=== PATIENT | female | born 1970 | race Hispanic/Latino ===

== ENCOUNTER 2017-12-10 21:14 | Emergency (ER) | payer BC ==
[2017-12-10] MEDS ORDERED: Amoxicillin/Potassium Clav 875 MG TAB ONE (21:52)
== END 2017-12-10 22:00 | disposition home or self-care (01) ==
LOC: BURERS 21:14
DX: L03.031 Cellulitis of right toe (principal); E11.9 Type 2 diabetes mellitus without complications; F17.210 Nicotine dependence, cigarettes, uncomplicated; Z79.84 Long term (current) use of oral hypoglycemic drugs
CPT/HCPCS: 10060

== ENCOUNTER 2018-03-03 21:45 | Emergency (ER) | payer BC | END 2018-03-03 22:20 | disposition home or self-care (01) | LOC: BURERS 21:45 | DX: J20.9 Acute bronchitis, unspecified (principal); E11.9 Type 2 diabetes mellitus without complications; F17.210 Nicotine dependence, cigarettes, uncomplicated; Z79.84 Long term (current) use of oral hypoglycemic drugs; Z79.899 Other long term (current) drug therapy | CPT/HCPCS: J7620 ==

== ENCOUNTER 2021-03-24 11:54 | Emergency (ER) | payer BC ==
[2021-03-24] MEDS ORDERED: predniSONE 20 MG TAB ONE (15:00)
[2021-03-24 15:07] LABS: #Basophils 0.1 thou/uL (0.0-0.2); #Monocytes 0.5 thou/uL (0.11-0.59); #Neutrophils 3.4 thou/uL (1.40-6.50); %Basophils 1.1 % (0.0-1.0); %Eosinophils 0.6 % (0.0-10.0); %Lymphocytes 32.8 % (21.0-51.0); %Monocytes 8.3 % (0.0-10.0); %Neutrophils 57.3 % (42.0-75.0); Hemoglobin 13.4 g/dL (12.0-16.0); Mean Corpuscular HGB CONC 33.8 g/dL (32.0-36.0); Mean Corpuscular Hemoglobin 31.2 pg (27.0-31.0); Mean Corpuscular Volume 92.1 fL (78.0-98.0); Mean Platelet Volume 9.9 fL (7.4-10.4); Platelet Count 203 thou/uL (130-400); Red Blood Cell (RBC) Count 4.29 mill/uL (4.20-5.40)
[2021-03-24 15:24] LABS: ALT (SGPT) 32 U/L (8-55); AST (SGOT) 35 U/L (5-34); Albumin 4.1 g/dL (3.5-5.0); Alkaline Phosphatase 56 U/L (40-110); Anion Gap 15 mmol/L (10-20); BUN (Urea Nitrogen) 4 mg/dL (9.8-20.1); Bilirubin, Total 0.5 mg/dL (0.2-1.2); Calc. Creatinine Clearance 0 mL/min (70-130); Calcium 10.1 mg/dL (7.8-10.44); Carbon Dioxide 24 mmol/L (22-29); Chloride 104 mmol/L (98-107); Glucose 158 mg/dL (70-105); Potassium 3.5 mmol/L (3.5-5.1); Protein, Total 7.1 g/dL (6.0-8.3); Sodium 139 mmol/L (136-145)
[2021-03-25 16:29] LABS: SARS-CoV-2 PCR by NAA Not Detected (NotDetected)
== END 2021-03-24 16:20 | disposition home or self-care (01) ==
LOC: BURERS 11:54
DX: B34.9 Viral infection, unspecified (principal); Z20.822 Contact with and (suspected) exposure to COVID-19; E11.9 Type 2 diabetes mellitus without complications; F17.210 Nicotine dependence, cigarettes, uncomplicated; Z79.84 Long term (current) use of oral hypoglycemic drugs
CPT/HCPCS: 36415; 71046; 80053; 83880; 84484; 85025; 87804; 93005; J7512; J7620; U0003; U0005

== ENCOUNTER 2022-12-21 20:00 | Emergency (ER) | payer BC ==
[2022-12-21] MEDS ORDERED: Ketorolac Tromethamine 30 MG/ML VIAL ONE (20:33)
[2022-12-21] MEDS ORDERED: HYDROcodone/Acetaminophen 5/325 mg Tablet ONE (20:38)
[2022-12-21] MEDS ORDERED: Ondansetron ODT 4 MG TAB ONE (20:39)
== END 2022-12-21 21:25 | disposition home or self-care (01) ==
LOC: BURERS 20:00
DX: M54.42 Lumbago with sciatica, left side (principal); E11.9 Type 2 diabetes mellitus without complications; F17.210 Nicotine dependence, cigarettes, uncomplicated; Z79.84 Long term (current) use of oral hypoglycemic drugs; Z79.899 Other long term (current) drug therapy
CPT/HCPCS: 72100; 96372; J1885; Q0162

== ENCOUNTER 2024-10-30 18:30 | Emergency (ER) | payer BC ==
[2024-10-30] MEDS ORDERED: Lidocaine 1% PF 5 ML VIAL ONE (18:56)
[2024-10-30] MEDS ORDERED: Bacitracin 1 PK ONE (19:21)
[2024-10-30] MEDS ORDERED: Boostrix 0.5 ML (Tdap) VIAL (>/=7 yrs of age) ONE (19:28)
[2024-10-30] MEDS ORDERED: Cephalexin 250 MG CAP ONE (19:44)
== END 2024-10-30 19:35 | disposition home or self-care (01) ==
LOC: BURERS 18:30
DX: S00.85XA Superficial foreign body of other part of head, initial encounter (principal); Z23 Encounter for immunization; W45.8XXA Other foreign body or object entering through skin, initial encounter
CPT/HCPCS: 90471; 90715; 96372

== ENCOUNTER 2025-02-23 16:59 | Emergency (ER) | payer BC ==
[2025-02-23] MEDS ORDERED: Ketorolac Tromethamine 30 MG (1 mL) VIAL ONE (17:36)
== END 2025-02-23 17:46 | disposition home or self-care (01) ==
LOC: BURERS 16:59
DX: S16.1XXA Strain of muscle, fascia and tendon at neck level, initial encounter (principal); E11.9 Type 2 diabetes mellitus without complications; I10 Essential (primary) hypertension; F17.210 Nicotine dependence, cigarettes, uncomplicated; Z79.84 Long term (current) use of oral hypoglycemic drugs; Z79.899 Other long term (current) drug therapy; X58.XXXA Exposure to other specified factors, initial encounter
CPT/HCPCS: 96372; 99283; J1885